=== PATIENT | female | born 1980 | race Caucasian/White ===

== ENCOUNTER 2018-02-09 08:57 | Inpatient (IN) | payer OTHER ==
[~2018-02-09] VITALS: Ht 162.6 cm; Wt 79.4 kg
[~2018-02-09 08:57] MED LIST: FOLI0.4T2 PO; IRON18TA PO; PREN1TAB52 PO
[2018-02-09] MEDS ORDERED: RINGERS SOLUTION,LACTATED 1,000 ML IV PRN (09:25)
[2018-02-09] MEDS ORDERED: OXYTOCIN 30 UNITS/LACT RINGERS 500 ML IV ONE (09:25)
[2018-02-09] MEDS ORDERED: LIDOCAINE/PF 1% 30 ML VIAL INJ PRN (09:30)
[2018-02-09] MEDS ORDERED: METHYLERGONOVINE MALEATE 0.2 MG/ML VIAL IM PRN (09:30)
[2018-02-09] MEDS ORDERED: CITRIC ACID/SODIUM CITRATE 30 ML SOLUTION UDCUP PO PRN (09:30)
[2018-02-09] MEDS ORDERED: METOCLOPRAMIDE HCL 5 MG/ML 2 ML VIAL IVP PRN (09:30)
[2018-02-09] MEDS ORDERED: FentaNYL CITRATE-PF 100 MCG/2 ML VIAL IVP PRN (09:30)
[2018-02-09 09:38] VITALS: BP 143/83
[2018-02-09 09:54] LABS: BASOPHILS % (AUTO) 0.6 % (0.0-2.0); EOSINOPHILS % (AUTO) 0.6 % (1.0-6.0); HEMATOCRIT 36.8 % (36-46); HEMOGLOBIN 12.2 g/dL (12.0-16.0); LYMPHOCYTES # (AUTO) 2.2 K/uL (1.0-4.8); LYMPHOCYTES % (AUTO) 24.9 % (22.0-44.0); MEAN CORPUSCULAR HGB CONC 33.2 G/dL (31.0-37.0); MEAN CORPUSCULAR VOLUME 81 fL (80-100); MONOCYTES # (AUTO) 0.7 K/uL (0.1-1.0); MONOCYTES % (AUTO) 7.7 % (2.0-9.0); NEUTROPHILS # (AUTO) 5.8 K/uL (1.8-7.7); NEUTROPHILS % (AUTO) 66.2 % (40.0-70.0); PLATELET COUNT (AUTO) 202 K/uL (150-450); RED BLOOD CELL COUNT(AUTO) 4.53 MIL/uL (4.00-5.20); RED CELL DISTRIBUTION WIDTH 16.6 % (11.5-14.5)
[2018-02-09] MEDS: RINGERS SOLUTION,LACTATED 1,000 ML IV SCH ×2 (10:14→10:22)
[2018-02-09] MEDS ORDERED: ONDANSETRON HCL 4 MG/2 ML VIAL IVP PRN (10:15)
[2018-02-09] MEDS ORDERED: NALBUPHINE HCL 10 MG/ML VIAL IVP PRN (10:15)
[2018-02-09] MEDS ORDERED: DiphenhydrAMINE HCL 50 MG/ML VIAL IVP PRN (10:15)
[2018-02-09] MEDS ORDERED: ROPIVACAINE HCL/PF 0.2% 100 ML ED PRN (10:15)
[2018-02-09] MEDS ORDERED: RINGERS SOLUTION,LACTATED 1,000 ML IV ONE (12:04)
[2018-02-09] MEDS ORDERED: IBUPROFEN 600 MG TABLET PO PRN (12:15)
[2018-02-09] MEDS ORDERED: MEASLES/MUMPS/RUBELLA VACCINE, LIVE 0.5 ML/VIAL SQ ONE (12:15)
[2018-02-09] MEDS ORDERED: GLYCERIN/WITCH HAZEL LEAF 40 PADS JAR TP PRN (12:15)
[2018-02-09] MEDS ORDERED: LANOLIN 7 GM OINTMENT TP PRN (12:15)
[2018-02-09] MEDS ORDERED: BENZOCAINE 20%/MENTHOL 56 GM SPRAY CANISTER TP PRN (12:15)
[2018-02-09] MEDS ORDERED: OxyCODONE HCL/ACETAMINOPHEN 5-325 MG TABLET PO PRN ×2 (12:15)
[2018-02-09] MEDS ORDERED: OXYTOCIN 30 UNITS/LACT RINGERS 500 ML IV PRN (12:33)
[2018-02-09] MEDS ORDERED: OXYGEN THERAPY IH SCH (20:00)
[2018-02-09] MEDS: MAGNESIUM HYDROXIDE SUSPENSION 30 ML UDCUP PO SCH (21:29)
[2018-02-10] MEDS: MAGNESIUM HYDROXIDE SUSPENSION 30 ML UDCUP PO SCH (11:04)
[2018-02-10] MEDS ORDERED: IBUP-2071 PO (11:11)
[2018-02-10] MEDS ORDERED: DSS100 PO (11:12)
== END 2018-02-10 12:30 | disposition home or self-care (01) | DRG 807 ==
LOC: OBSVTOIN 08:57 → 4S 08:57 → UNDOADMOB 10:10 → OBSVTOIN 10:10 → 4S 10:10 → INTOOBSV 10:10
PROVIDERS: ADMIT Obstetrics & Gynecology; ATTEND Obstetrics & Gynecology
PROC: 10E0XZZ Delivery of Products of Conception, External Approach (ICD-10-PCS; principal; 2018-02-09)
PROC: 0KQM0ZZ Repair Perineum Muscle, Open Approach (ICD-10-PCS; 2018-02-09)
PROC: 3E0R3BZ Introduction of Anesthetic Agent into Spinal Canal, Percutaneous Approach (ICD-10-PCS; 2018-02-09)
PROC: 00HU33Z Insertion of Infusion Device into Spinal Canal, Percutaneous Approach (ICD-10-PCS; 2018-02-09)
DX: O70.1 Second degree perineal laceration during delivery (principal); Z37.0 Single live birth; Z3A.39 39 weeks gestation of pregnancy
CPT/HCPCS: 86850; 86900; 86901; J2590